=== PATIENT | female | born 1970 | race Caucasian/White ===

== ENCOUNTER 2017-01-13 09:41 | Day surgery (SDC) | payer OTHER ==
[2016-12-20 12:01] VITALS: BMI 25.0
[2016-12-27 11:52] VITALS: BMI 25.0
[~2017-01-13] VITALS: Ht 175.3 cm; Wt 77.3 kg
[~2017-01-13 09:41] MED LIST: BUPR-79 PO; BUSP-8 PO; LACTATED RINGER'S 1000ML 1,000 ML IV SCH; LEVOIUD INT UTER; MAGN400T6 PO; MULT-506 PO; SUMA25TA PO
[2017-01-13 09:50] VITALS: BP 107/59; PULSE 68; TEMP 36.8; O2SAT 99; Ht 175.3 cm; Wt 77.3 kg
[2017-01-13] MEDS ORDERED: DEXAMETHASONE SOD INJ 4 MG/ML VIAL ONE (09:50)
[2017-01-13] MEDS ORDERED: PROPOFOL IV EMULSION 10 MG/ML 20 ML VIAL IV ONE (09:50)
[2017-01-13] MEDS ORDERED: LIDOCAINE HCL 2% 2 ML VIAL (20MG/ML) ONE (09:50)
[2017-01-13] MEDS ORDERED: ONDANSETRON INJ 2 MG/ML 2 ML VIAL ONE (09:50)
[2017-01-13] MEDS ORDERED: FENTANYL CITRATE INJ 50 MCG/1 ML 2 ML VIAL ONE ×2 (09:50→12:21)
[2017-01-13] MEDS ORDERED: NEOSTIGMINE METHYLSULFATE 5 MG/5 ML SYR ONE (09:50)
[2017-01-13] MEDS ORDERED: MIDAZOLAM HCL 1 MG/ML 2ML VIAL ONE (09:50)
[2017-01-13] MEDS ORDERED: GLYCOPYRROLATE INJ 0.2 MG/ML VIAL ONE (09:50)
[2017-01-13] MEDS ORDERED: ROCURONIUM BROMIDE 10 MG/ML 5 ML VIAL ONE (09:50)
--- NOTE | 2017-01-13 10:13 | History & Physical Bridge Note ---
H&P Re-Evaluation Bridge Note: I have examined the patient, reviewed the History & Physical and in the interval since the performance of the History & Physical I have noted the following changes of clinical significance: No changes noted
[2017-01-13] MEDS ORDERED: OXYC-57 PO (10:16)
[2017-01-13] MEDS ORDERED: ATROPINE SULFATE 0.1 MG/ML 5ML SYR IV PRN (11:00)
[2017-01-13] MEDS ORDERED: EpHEDrine SULFATE INJ 50 MG/ML AMP IV PRN (11:00)
[2017-01-13] MEDS ORDERED: ONDANSETRON INJ 2 MG/ML 2 ML VIAL IV PRN ×2 (11:00→13:00)
[2017-01-13] MEDS ORDERED: HYDROmorphone INJ 1 MG/ML SYR IV PRN (11:00)
[2017-01-13] MEDS ORDERED: SCOPOLAMINE 1.5 MG TDSY TD ONE ×2 (11:07→11:15)
[2017-01-13] MEDS ORDERED: BUPIVACAINE 0.5 % 5 MG/1 ML MPF 30ML VIAL ONE (11:56)
[2017-01-13] MEDS ORDERED: SODIUM CHLORIDE 0.9% 1000ML 1,000 ML IV SCH (12:53)
--- NOTE | 2017-01-13 12:55 | [facility] Post Operative Brief Note ---
Immediate Operative Summary Operative Date January 13, 2017. Pre-Operative Diagnosis Desires sterilization Post-Operative Diagnosis Same as pre-operative Procedure(s) Performed Laparoscopic bilateral tubal sterilization with application of Filshie clips Surgeon Dr. Padmini Jenkins DO Shipping And Receiving Clerk Surgeon(s) Dr. Azucena Cullen MD Estimated Blood Loss 5ml Findings Normal appearing tubes, uterus, ovaries. Appendix not visualized. Specimens None per surgeon Complication(s) None Disposition Recovery Room / PACU
--- NOTE | 2017-01-13 12:57 | Discharge Instructions ---
Discharge Instructions Date of Service January 13, 2017. Visit Reason for Visit: Desires Sterilization Discharge Discharge Diagnosis / Problem: s/p tubal sterilization Discharge Goals Goal(s): Therapeutic intervention Activity Recommendations Activity Limitations: per Instructions/Follow-up section Anesthesia . Post Anesthesia Instructions: If you have had General Anesthesia or IV Sedation: * Do not drive today. * Resume driving when surgeon permits. * Do not make important decisions or sign legal documents today. * Call surgeon for: 1. Temperature elevations greater than 101 degrees F. 2. Uncontrollable pain. 3. Excessive bleeding. 4. Persistent nausea and vomiting. 5. Medication intolerance (nausea, vomiting or rash). * For nausea and vomiting use only clear liquids such as: tea, soda, bouillon until nausea subsides, then gradually increase diet as tolerated. * If you have any concerns or questions, call your surgeon's office. If physician is unavailable and it is an emergency, call 911 or go to the nearest emergency room. . Instructions / Follow-Up Instructions / Follow-Up ACTIVITY RECOMMENDATIONS: * Rest the first 2-3 days. You should be back to your normal activity levels by day 3. * No heavy lifting for 2 weeks. * No intercourse, tampons or douching for 1-2 weeks. * You may shower the next day. * Do not drive anytime that you are taking narcotic pain medicines. RETURN TO SCHOOL/WORK: * May return to school or work after 2-3 days. DIET: Nausea may occur in the immediate post-operative period. If so, take clear liquids such as tea, bouillon, apple juice until all nausea has subsided, then resume usual diet. MEDICATIONS: Resume previous medications unless instructed otherwise by your surgeon. Ibuprofen 200mg 2-3 tablets every 4-6 hours as needed -- OR -- Aleve 2 tablets every 8-12 hours as needed for post-operative discomfort Medications are over the counter. Tylenol may be used if above medications are contraindicated or not preferred. Medication should be taken with food or milk. Do not take on an empty stomach. SPECIAL CARE INSTRUCTIONS: * Check temperature twice daily for one week. report any elevation over 101 degrees. * You may experience some vagina spotting and/or bleeding. This is normal for 1 -2 weeks and should not be heavier than a normal period. If it is unusual in amount, call your physician. * Post-operative discomfort may consist of a sore throat, a "bloated" feeling and pain in the shoulders. these are normal symptoms, which usually only last for 2-3 days. * Remove band-aids tomorrow and shower. There is no need to replace band-aids unless there is drainage or discomfort. FOLLOW UP VISIT: Call your doctor's office for a post-operative 2 week visit if not already scheduled. Diet Recommendations Recommended Home Diet: resume previous diet Procedures Procedures Performed: Laparoscopic bilateral tubal sterilization with application of Filshie clips Pending Studies Studies pending at discharge: no Medical Emergencies . Who to Call and When: Medical Emergencies: If at any time you feel your situation is an emergency, please call 911 immediately. . Non-Emergent Contact Non-Emergency issues call your: Primary Care Provider, Computer Numerical Control Operator . . "Provider Documentation" section prepared by Padmini Jenkins. . [place] Drug Monitoring Program Search Results: patient reviewed within database
[2017-01-13] MEDS ORDERED: IBUPROFEN 600 MG TAB PO PRN (13:00)
[2017-01-13] MEDS ORDERED: OXYCODONE/ACETAMINOPHEN 5-325 TAB PO PRN ×2 (13:00)
[2017-01-13] MEDS ORDERED: PROMETHAZINE HCL INJ 25 MG in SODIUM CHLORIDE 0.9% 50ML 50 ML IV PRN (13:00)
[2017-01-13] MEDS: FENTANYL CITRATE INJ 50 MCG/1 ML 2 ML VIAL IV PRN ×4 (13:00→13:15)
[2017-01-13] MEDS ORDERED: PROMETHAZINE HCL INJ 12.5 MG in SODIUM CHLORIDE 0.9% 50ML 50 ML IV ONE ×2 (13:45→14:30)
[2017-01-13] MEDS ORDERED: NURSING VERBAL MED ORDER ONE ×2 (13:45→14:30)
--- NOTE | 2017-01-13 14:39 | Anesthesiology Progress Note ---
Anesthesia Post Op Note Date & Time January 13, 2017 at 14:40 Vital Signs Pain Intensity: 1 Vital Signs Past 12 Hours Date Time Temp Pulse Resp B/P Pulse Ox O2 Delivery O2 Flow Rate FiO2 01/13/17 13:38 61 16 98 01/13/17 13:38 61 16 01/13/17 13:33 52 12 94 01/13/17 13:33 53 12 01/13/17 13:28 61 12 01/13/17 13:28 62 12 98 01/13/17 13:26 106/66 01/13/17 13:24 36.5 56 16 106/66 96 Room Air 01/13/17 13:23 50 7 01/13/17 13:23 50 7 96 01/13/17 13:22 51 14 01/13/17 13:22 52 14 98 01/13/17 13:21 109/67 01/13/17 13:17 51 11 98 01/13/17 13:17 51 11 01/13/17 13:16 113/71 01/13/17 13:13 51 14 01/13/17 13:13 51 14 115/50 98 01/13/17 13:01/13/17 13:08 53 14 01/13/17 13:08 54 14 100 01/13/17 13:06 99/55 01/13/17 13:03 56 0 01/13/17 13:03 55 0 95 01/13/17 13:01 97/50 01/13/17 12:58 57 11 01/13/17 12:58 57 11 99 01/13/17 12:56 121/75 01/13/17 12:54 123/75 01/13/17 12:53 61 100 01/13/17 12:53 36.2 57 14 123/75 100 Mask 10 01/13/17 12:53 61 01/13/17 09:50 36.8 68 18 107/59 99 Room Air Notes Mental Status: alert / awake / arousable, participated in evaluation Pt Amnestic to Procedure: Yes Nausea / Vomiting: adequately controlled Pain: adequately controlled Airway Patency, RR, SpO2: stable & adequate BP & HR: stable & adequate Hydration State: stable & adequate Anesthetic Complications: no major complications apparent
[2017-01-13 14:45] VITALS: BP 141/73; PULSE 55; TEMP 36.8; O2SAT 99
--- NOTE | 2017-01-13 14:51 | OPERATIVE REPORT ---
DATE OF OPERATION: 01/13/2017 PREOPERATIVE DIAGNOSIS: Desires sterilization. POSTOPERATIVE DIAGNOSIS: Same. PROCEDURES PERFORMED: Laparoscopic bilateral tubal sterilization with application of Filshie clip. SURGEON: Padmini Jenkins DO SMOKING PIPE LINER: Dr. Azucena Cullen. ESTIMATED BLOOD LOSS: 5 mL. FINDINGS: Normal appearing tubes, uterus and ovaries. Appendix not visualized. SPECIMENS: None. COMPLICATIONS: None. DISPOSITION: Stable and good to recovery room. INDICATIONS FOR PROCEDURE: The patient is a 46-year-old G4, P4 who has completed childbearing and is requesting permanent sterilization. She has been counseled that risk of failure of tubal ligation is 2-3 per 1000 cases. DESCRIPTION OF PROCEDURE: The patient was seen in the preoperative holding area where risks, benefits, alternatives to surgery were reviewed. She elected to proceed with surgery. Informed consent had previously been obtained in the office under no duress. All questions were answered. The patient was taken to the operating room where she was given general anesthesia. She was then placed in the dorsal lithotomy position with feet in Yellofin stirrups and prepared and draped in the usual sterile fashion. A Nieves catheter was placed and clear yellow urine was visualized. A timeout was called and confirmed. A sponge stick was placed in the vagina for uterine manipulation. Gloves were changed and attention was then turned to the abdomen where an infraumbilical incision was made with a scalpel and using the open Anju technique, the trocar site was carried down to the abdomen. A 10 mm trocar was inserted. A camera was inserted to ensure intra-abdominal placement. This was confirmed and CO2 gas was used to insufflate the abdomen on high flow to a pressure of 15 mmHg. The patient was placed in Trendelenburg position. The pelvis was visualized and a second trocar was placed an 8 mm trocar in the midline suprapubic location. This was placed under direct visualization. The Filshie clips were applied bilaterally ensuring that they are placed on the tube by visualizing the tubal fimbriae on bilateral sides, the clip was placed in the isthmic region of the fallopian tube. Pictures were taken. The suprapubic port was removed under direct visualization. The camera port was removed and the abdomen was desufflated of CO2 gas. The fascial incision at the umbilical site was reapproximated using 0 Vicryl and the skin incisions were reapproximated using 4-0 Vicryl in a running subcuticular stitch. Steri-Strips were applied. The patient was awoken from anesthesia and taken to the recovery room in stable and good condition. I attest to the content of the Intraoperative Record and any orders documented therein. Any exceptio ns are noted below.
[2017-01-13 15:15] VITALS: BP 122/73; PULSE 59; TEMP 36.7; O2SAT 100
[2017-01-13 15:45] VITALS: BP 100/66; PULSE 80; TEMP 36.7; O2SAT 99
[2017-01-13 16:45] VITALS: BP 109/70; PULSE 65; TEMP 36.7; O2SAT 100
== END 2017-01-13 17:30 | disposition home or self-care (01) ==
LOC: C.ACU 09:41
PROVIDERS: ATTEND Obstetrics & Gynecology
DX: Z30.2 Encounter for sterilization (principal); F41.9 Anxiety disorder, unspecified; F32.9 Major depressive disorder, single episode, unspecified; Z68.25 Body mass index [BMI] 25.0-25.9, adult; Z98.818 Other dental procedure status